=== PATIENT | male | born 1985 | race Caucasian/White ===

== ENCOUNTER 2020-10-29 10:23 | Emergency (ER) | payer OTHER ==
[2020-10-29 10:30] VITALS: TEMP 97.8
[2020-10-29] MEDS ORDERED: LORazepam 1 MG TAB PO STA (11:10)
--- NOTE | 2020-10-29 11:14 | ED ---
General Adult HPI - General Chief complaint: Chest Pain Stated complaint: Dizziness, rapid heart beat Time Seen by Provider: 10/29/20 10:30 Source: patient, RN notes reviewed, old records reviewed Mode of arrival: wheelchair Limitations: no limitations - History of Present Illness Initial comments: This a 35-year-old male who presents emergency Department with a long-standing history of anxiety. Patient states at 2:00 in the morning he was still up and he started having a panic attacks eventually subsided after he called a help line and spoke to them for about 45 minutes. Patient states he never went to sleep and is 7:00 this morning started having a panic attack again in his fingers became tingly felt lightheaded and mildly short of breath. Patient is feeling a little bit better now but still feels anxious and he states he feels as though his heart was racing as well. Patient denies any chest pain. Patient denies any recent fever chills or cough. Patient has abdominal pain patient denies nausea vomiting diarrhea. Patient denies any other symptoms at this time - Related Data Allergies Allergy/AdvReac Type Severity Reaction Status Date / Time No Known Allergies Allergy Verified 10/29/20 10:30 Review of Systems ROS Statement: Those systems with pertinent positive or pertinent negative responses have been documented in the HPI. ROS Other: All systems not noted in ROS Statement are negative. Past Medical History History of Any Multi-Drug Resistant Organisms: None Reported Past Psychological History: Anxiety Smoking Status: Never smoker Past Alcohol Use History: None Reported Past Drug Use History: Marijuana General Exam - General Exam Comments Initial Comments: GENERAL: Patient is well-developed and well-nourished. Patient is nontoxic and well- hydrated and is in no acute distress. ENT: Neck is soft and supple. No significant lymphadenopathy is noted. Oropharynx is clear. Moist mucous membranes. Neck has full range of motion without eliciting any pain. EYES: The sclera were anicteric and conjunctiva were pink and moist. Extraocular movements were intact and pupils were equal round and reactive to light. Eyelids were unremarkable. PULMONARY: Unlabored respirations. Good breath sounds bilaterally. No audible rales rhonchi or wheezing was noted. CARDIOVASCULAR: Patient's heart rates about 110 bpm. ABDOMEN: Soft and nontender with normal bowel sounds. SKIN: Skin is clear with no lesions or rashes and otherwise unremarkable. NEUROLOGIC: Patient is alert and oriented x3. Cranial nerves II through XII are grossly intact. Motor and sensory are also intact. Normal speech, volume and content. Symmetrical smile. MUSCULOSKELETAL: Normal extremities with adequate strength and full range of motion. No lower extremity swelling or edema. No calf tenderness. LYMPHATICS: No significant lymphadenopathy is noted PSYCHIATRIC: Patient is extremely anxious Limitations: no limitations Course Vital Signs 10/29/20 10/29/20 10:27 10:49 Temperature 97.8 F Pulse Rate 115 H 105 H Respiratory 16 18 Rate Blood Pressure 115/52 116/69 O2 Sat by Pulse 100 100 Oximetry Medical Decision Making - Medical Decision Making EKG shows sinus tachycardia at 104 bpm VT interval 256 QRS 70 QT interval 316 QTC is 4:15. Patient's EKG shows no ST segment elevation or depression. Disposition Clinical Impression: Anxiety Disposition: HOME SELF-CARE Condition: Good Instructions (If sedation given, give patient instructions): Anxiety (ED) Is patient prescribed a controlled substance at d/c from ED?: No Referrals: Chintan Jacobson MD [Primary Care Provider] - 1-2 days Time of Disposition: 11:14
[2020-10-29 11:52] VITALS: BP 124/78; PULSE 89; RESP 20
== END 2020-10-29 11:52 | disposition home or self-care (01) ==
LOC: EC 10:23
DX: F41.9 Anxiety disorder, unspecified (principal); R06.02 Shortness of breath
CPT/HCPCS: 93005; 99284